=== PATIENT | female | born 1960 | race Caucasian/White ===

== ENCOUNTER 2017-10-31 18:05 | Emergency (ER) | payer OTHER ==
[~2017-10-31] VITALS: Ht 167.6 cm; Wt 83.5 kg
[2017-10-31 20:10] VITALS: BP 150/87
== END 2017-10-31 20:13 | disposition home or self-care (01) ==
LOC: M.ERS 18:05
DX: S53.491A Other sprain of right elbow, initial encounter (principal); Z88.8 Allergy status to other drugs, medicaments and biological substances; Z91.018 Allergy to other foods; W18.39XA Other fall on same level, initial encounter; Y93.89 Activity, other specified; Y92.89 Other specified places as the place of occurrence of the external cause; Y99.8 Other external cause status